=== PATIENT | male | born 1965 ===

== ENCOUNTER 2017-06-15 07:11 | Day surgery (SDC) | payer BC ==
[2017-06-15] MEDS ORDERED: ONDANSETRON HCL INJ/PF 4 MG/2 ML SDV ONE (07:17)
[2017-06-15] MEDS ORDERED: NALOXONE HCL INJ/PF 0.4 MG/1 ML SDV ONE (07:17)
[2017-06-15] MEDS ORDERED: DIPHENHYDRAMINE HCL 50 MG/ML VIAL ONE (07:17)
[2017-06-15] MEDS ORDERED: FLUMAZENIL INJ 0.5 MG/5 ML VIAL ONE (07:18)
[2017-06-15] MEDS ORDERED: FENTANYL CITRATE INJ/PF 100 MCG/2 ML AMPUL ONE (07:18)
[2017-06-15] MEDS ORDERED: GLUCAGON,HUMAN RECOMB 1 MG INJ ONE (07:18)
[2017-06-15] MEDS ORDERED: EPINEPHRINE INJ 1 MG/10 ML DISP.SYRIN ONE (07:18)
[2017-06-15] MEDS: MIDAZOLAM 2 MG/2 ML INJ ONE ×2 (08:12→08:18)
--- NOTE | 2017-06-15 09:00 | Operative Report ---
Operative Report DATE OF SURGERY: 06/15/17 Operative Report: The risks, benefits and alternatives of the procedure including risks of bleeding, perforation requiring surgery are explained to the patient in detail and informed consent was obtained. Patient was brought back to the endoscopy suite and placed in the left, lateral decubital position. Timeout was called. Conscious sedation medications administered. A rectal examination is done which did not reveal any masses, tears or fissures. An Olympus videoscope was inserted into the patient's rectum. It is carefully advanced all the way to the cecum. The cecum was identified by the usual anatomical landmarks including the ileocecal valve as well as the appendiceal office. Photodocumentation is obtained. Prep was good. The scope was then sequentially pulled back via the various segments of the colon including the ascending colon, hepatic flexure, transverse colon, splenic flexure, descending colon and finding to the rectosigmoid portions of the colon. Retroflexion maneuvers performed. PREOPERATIVE DIAGNOSIS: Colorectal cancer screening. POSTOPERATIVE DIAGNOSIS: Sessile polyp on the cecal wall status post biopsy. Pedunculated polyp in the area of the splenic flexure removed via snare polypectomy and retrieved. OPERATION: Colonoscopy with snare polypectomy. Colonoscopy with biopsy SURGEON: ROBBI SOMMERS ANESTHESIA: Moderate Sedation - 4 mg of Versed, 75 mcg of fentanyl. Conscious sedation monitoring time 30 minutes. TISSUE REMOVED OR ALTERED: Polyp retrieved. COMPLICATIONS: None. ESTIMATED BLOOD LOSS: None. INTRAOPERATIVE FINDINGS: No masses, AVMs, diverticulosis noted PROCEDURE: Patient tolerated the procedure well. No immediate postprocedure complications are noted. Patient discharged in good condition. Discharge date 06/15/2017. Discharge diet: Regular. Discharge activity: Regular. 2-3 week follow-up to discuss findings. 3-5 year surveillance colonoscopy. Patient is instructed to call the office or proceed to the emergency room should there be any further problems or questions. We will wait on pathology.
[2017-06-15 09:29] VITALS: BP 138/90
== END 2017-06-15 09:35 | disposition home or self-care (01) ==
LOC: END 07:11
PROVIDERS: ATTEND Internal Medicine Gastroenterology
PROC: 0DBH8ZX Excision of Cecum, Via Natural or Artificial Opening Endoscopic, Diagnostic (ICD-10-PCS; principal; 2017-06-15 08:00)
PROC: 0DBL8ZX Excision of Transverse Colon, Via Natural or Artificial Opening Endoscopic, Diagnostic (ICD-10-PCS; 2017-06-15 08:00)
DX: Z12.11 Encounter for screening for malignant neoplasm of colon (principal); K63.5 Polyp of colon; Z79.84 Long term (current) use of oral hypoglycemic drugs; Z79.899 Other long term (current) drug therapy
CPT/HCPCS: 45380; 45385; 88305 ×2; J2250; J3010; J0171; J1200; J1610; J2310; J2405; J3490